=== PATIENT | female | born 1985 | race Caucasian/White ===

== ENCOUNTER 2019-11-24 06:49 | Emergency (ER) | payer OTHER ==
[~2019-11-24] VITALS: Ht 162.6 cm; Wt 80.3 kg
[2019-11-24 07:02] VITALS: Ht 162.6 cm; Wt 80.3 kg
[2019-11-24 08:23] VITALS: BP 139/90
== END 2019-11-24 08:23 | disposition home or self-care (01) ==
LOC: ED 06:49
DX: J04.0 Acute laryngitis (principal); F17.210 Nicotine dependence, cigarettes, uncomplicated; I10 Essential (primary) hypertension
CPT/HCPCS: 99406

== ENCOUNTER 2020-01-15 23:33 | Emergency (ER) | payer OTHER ==
[~2020-01-15] VITALS: Ht 154.9 cm; Wt 90.7 kg
[2020-01-15 23:35] VITALS: Ht 154.9 cm; Wt 90.7 kg
[2020-01-16 00:29] LABS: UA SPECIFIC GRAVITY >=1.030 (1.005-1.035); microscopic required? YES; urine erythrocyte NEGATIVE (NEGATIVE)
[2020-01-16 04:25] VITALS: BP 117/79
[2020-01-17 08:06] LABS: RAPID PLASMA REAGIN Reactive (Non Reactive)
== END 2020-01-16 04:25 | disposition home or self-care (01) ==
LOC: ED 23:33
PROVIDERS: Emergency Medicine
DX: A64 Unspecified sexually transmitted disease (principal); N39.0 Urinary tract infection, site not specified
CPT/HCPCS: 87491; 87591; J0561; J0696